=== PATIENT | male | born 1970 | race Hispanic/Latino ===

== ENCOUNTER 2016-11-07 14:35 | Outpatient (CLI) | payer BC ==
[~2016-11-07 14:35] MED LIST: Gadobenate Dimeglumine 529 MG/1 ML (20ML VIAL) ONE
--- NOTE | 2016-11-07 18:53 | MRI ---
MRI OF LEFT FOREARM PERFORMED WITH AND WITHOUT CONTRAST ENHANCEMENT: 11/07/16 HISTORY: Left forearm soreness. Loss of strength. Evaluation for soft tissue mass. I see no evidence of any muscle atrophy within the forearm. There is no edema changes or signs of an y type of compartment syndrome. There is no subcutaneous inflammatory process. Postcontrast images show no areas of abnormal contrast enhancement. No soft tissue mass is demonstra amanda. Do not see any evidence for enhancement along nerve bundles. Marrow signal change is normal. IMPRESSION: Unremarkable MRI of the left forearm. POS: [facility]
== END 2016-11-07 14:36 | disposition home or self-care (01) ==
LOC: SCSMRI 14:35
PROVIDERS: ATTEND Orthopaedic Surgery
DX: R22.30 Localized swelling, mass and lump, unspecified upper limb (principal)
CPT/HCPCS: A9579